=== PATIENT | female | born 1995 | race Two or more races ===

== ENCOUNTER 2025-03-30 01:58 | Emergency (ER) | payer OTHER ==
[~2025-03-30] VITALS: Ht 157.5 cm; Wt 102.1 kg
--- NOTE | 2025-03-30 02:16 | ED.PDOC ---
WATER SERVER HPI Comments 29-year-old female who came to ER for vaginal bleeding. Patient is a , approximately 4-5 weeks by LMP. Earlier today she started having vaginal bleeding. Denies any abdominal pain. 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 Feb 08, 2025 Family History Family History: Reviewed,noncontributory to illness Social History Smoker: Non-Smoker Alcohol: Denies ETOH Use Drugs: Denies Drug Use Lives In: Home Constitutional: denies: chills, diaphoresis, fatigue, fever, malaise, sweats, weakness, others EENTM: denies: blurred vision, double vision, ear bleeding, ear discharge, ear drainage, ear pain, ear ringing, eye pain, eye redness, hearing loss, mouth pain, mouth swelling, nasal discharge, nose bleeding, nose congestion, nose pain, photophobia, tearing, throat pain, throat swelling, voice changes, others Respiratory: denies: cough, hemoptysis, orthopnea, SOB at rest, shortness of breath, SOB with excertion, stridor, wheezing, others Cardiovascular: denies: chest pain, dizzy spells, diaphoresis, Dyspnea on exertion, edema, irregular heart beat, left arm pain, lightheadedness, palpitations, PND, syncope, others Gastrointestinal: denies: abdomen distended, abdominal pain, blood streaked bowels, constipated, diarrhea, dysphagia, difficulty swallowing, hematemesis, melena, nausea, poor appetite, poor fluid intake, rectal bleeding, rectal pain, vomiting, others Genitourinary: reports: abnormal vagina bleeding; denies: burning, dyspareunia, dysuria, flank pain, frequency, hematuria, incontinence, pain, , vagina discharge, urgency, others Neurological: denies: dizziness, fainting, headache, left sided numbness, left sided weakness, numbness, paresthesia, pre-existing deficit, right sided numbness, right sided weakness, seizure, speech problems, tingling, tremors, weakness, others Musculoskeletal: denies: back pain, gout, joint pain, joint swelling, muscle pain, muscle stiffness, neck pain, others Integumetry: denies: bruises, change in color, change in hair/nails, dryness, laceration, lesions, lumps, rash, wounds, others Allergic/Immunocompromised: denies: Difficulty Healing, Frequent Infections, Hives, Itching, others Hematologic/Lymphatic: denies: anemia, blood clots, easy bleeding, easy bruising, swollen glands, others Endocrine: denies: excessive hunger, excessive sweating, excessive thirst, excessive urination, flushing, intolerance to cold, intolerance to heat, unexplained weight gain, unexplained weight loss, others Psychiatric: denies: anxiety, bipolar disorder, depression, hopeless, panic disorder, schizophrenia, sleepless, suicidal, others Physical Exam General Appearance: No Apparent Distress, Normal HEENT: Normal ENT Inspection, Pharynx Normal, TMs Normal Neck: Full Range of Motion, Non-Tender, Normal, Normal Inspection Respiratory: Chest Non-Tender, Lungs Clear, No Accessory Muscle Use, No Respiratory Distress, Normal Breath Sounds Cardiovascular: No Edema, No JVD, No Murmur, No Gallop, Normal Peripheral Pulses, Regular Rate/Rhythm Breast Exam: Deferred Gastrointestinal: No Organomegaly, Non Tender, No Pulsatile Mass, Normal Bowel Sounds, Soft Genitalia: Deferred Pelvic: Deferred Rectal: Deferred Extremities: No calf tenderness, Normal capillary refill, Normal inspection, No rmal range of motion, Non-tender, No pedal edema Musculoskeletal : Apperance: Normal Neurologic: Alert, 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 Was a procedure done?: No Differential Diagnosis (BOREMATIC OPERATOR) Vaginal Bleeding: - Missed, - Threatened, Blood Loss Anemia, Ectopic X-Ray, Labs, Meds, VS Vital Signs Date Time Temp Pulse Resp B/P (MAP) Pulse Ox O2 Delivery O2 Flow Rate FiO2 03/30/25 01:59 98.3 70 16 122/82 98 98.3 Lab Test 03/30/25 02:15 03/30/25 02:13 Range/Units Beta HCG, Quantitative 47567.4 H 1.5-4.2 mIU/mL Urine Color Colorless Yellow Urine Clarity Clear Clear Urine pH 6.5 5.0-9.0 Urine Specific [place] 1.004 1.001-1.035 Urine Protein Negative Negative Urine Ketones Negative Negative Urine Blood 3+ H Negative /uL Urine Nitrite Negative Negative Urine Bilirubin Negative Negative Urine Urobilinogen Normal Negative mg/dL Urine Leukocyte Esterase Trace Negative /uL Urine RBC 18 0 - 4 /hpf Urine Microscopic WBC 2 0-5 /HPF Urine Squamous Epithelial Cells Few <5 /hpf Urine Renal Epithelial Cells Few None Seen /hpf Urine Bacteria Few H None Seen /hpf Urine Hyaline Casts Few 0 - 2 /lpf Urine Glucose Normal Normal mg/dL Time of 1ST Reevaluation: 02:13 Reevaluation 1ST: Unchanged Patient Education/Counseling: Diagnosis, Treatment Family Education/Counseling: No Family Present Comments pt is 7 weeks by US. IUP is seen. however, with spotting, she has threatened miscarriage. she is RH +. there is mild LE in her urine. i will start her on keflex and she is stable to follow up with her OB Departure 1 Departure Time of Disposition: 04:50 Impression: Primary Impression: Threatened miscarriage Additional Impression: UTI (urinary tract infection) Disposition: 01 HOME / SELF CARE / HOMELESS Condition: Good Additional Instructions: off work for the next 3 days. follow up with your doctor in 3 days,. e-Prescriptions Cephalexin Monohydrate (Cephalexin) 500 Mg Cap 500 MG PO Q6HR for 7 Days, #28 MG Prov: MAYA PURCELL MD 03/30/25 Discharged With: Self Critical Care Note Critical Care Time?: No Stability Stability form required: No Heart Score Heart Score: Heart Score Response (Comments) Value History N/A 0 EKG N/A 0 Age N/A 0 Risk Factors N/A 0 Troponin N/A 0 Total 0 I personally scribed for MAYA PURCELL MD ([email or web address]) on 03/30/25 at 02:16. Electronically submitted by Jean Pierre Oneal ([email or web address]). MAYA PURCELL MD Mar 30, 2025 02:16
[2025-03-30 02:32] LABS: Urine Protein, UAD Negative (Negative)
--- NOTE | 2025-03-30 04:47 | DVH ---
MEDICAL RECORDS NUMBER: [id number] PROCEDURE: US OB ULTRASOUND COMP LESS 14WKS Date: 03/30/2025 04:18 AM HISTORY: spotting COMPARISON: None TECHNIQUE:Transvaginal scanning is utilized. FINDINGS: The uterus measures 10.8 cm by 5.6 cm by 7.0 cm. Early intrauterine is identified with a heart rate of 122 beats per minute. Small yolk sac is noted. pole measuring 0.93 cm corresponds with a gestational age of 7 weeks and 0 days. Estimated due date is 11/16/2025. The right ovary demonstrates a 4.5 cm probable corpus luteum cyst.. The left ovary appears unremarkable with small follicular cysts. No adnexal masses are seen. No free fluid is seen. IMPRESSION: 1. Single live intrauterine with a heart rate of 122 beats per minute. 2. Probable 4.5 cm right ovarian corpus luteum cyst.
[2025-03-30 04:50] VITALS: BP 110/64; PULSE 74; RESP 15; TEMP 97.9; O2SAT 98
[2025-03-30] MEDS ORDERED: CEPH500C PO (04:54)
== END 2025-03-30 05:29 | disposition home or self-care (01) ==
LOC: ER 01:58
DX: O20.0 Threatened abortion (principal); O23.41 Unspecified infection of urinary tract in pregnancy, first trimester; N39.0 Urinary tract infection, site not specified; Z3A.01 Less than 8 weeks gestation of pregnancy
CPT/HCPCS: 36415; 76801; 81001; 84702; 86900; 86901